=== PATIENT | female | born 1990 | race Asian ===

== ENCOUNTER 2025-05-01 18:19 | Emergency (ER) | payer OTHER, SELFPAY ==
[2025-05-01 18:24] VITALS: BP 119/78
[2025-05-01 18:49] LABS: Urine Character Clear (Clear)
[2025-05-01 18:50] LABS: Hematocrit 41.2 % (37.0-47.0); Hemoglobin 13.5 g/dL (12.0-16.0); Mean Corp Hgb Conc. 32.8 g/dL (33.0-37.0); Mean Corpuscular Volume 85.8 fL (81.0-99.0); Nucleated Red Blood Cells % 0 %; Platelet Count 325 10^3/uL (130-400); Red Cell Dist. Width 14.6 % (11.5-14.5)
[2025-05-01 19:04] LABS: HCG, Serum Qualitative Screen Negative
[2025-05-01 19:08] LABS: ALT (SGPT) 18 U/L (0-35); AST (SGOT) 21 U/L (14-36); Albumin 5.0 g/dl (3.5-5.0); Alkaline Phosphatase 83 U/L (38-126); Blood Urea Nitrogen 12 mg/dl (7-17); Calcium 9.6 mg/dl (8.4-10.2); Carbon Dioxide 24 mmol/L (22-30); Chloride 102 mmol/L (98-107); Glucose 135 mg/dl (70-99); Lipase 43 U/L (23-300); Potassium 3.7 mmol/L (3.5-5.1); Sodium 137 mmol/L (135-145); Total Protein 8.3 g/dl (6.3-8.2); eGFR > 60.00
[2025-05-01 19:48] LABS: Urine Squamous Cell 0-2 /LPF (Few); Urine White Cell 0-2 /HPF (0-5)
--- NOTE | 2025-05-01 21:45 | ED.GENMED ---
History of Present Illness
<Fiona Zhang NP - Last Filed: 05/02/25 00:31>
General
Chief Complaint: Abdominal Pain
Source: patient
Exam Limitations: none
Time Seen by Provider: 05/01/25 21:35
Nursing documentation reviewed up to this point in time: agreed with
History of Present Illness
History of Present Illness:
Patient is emergency department with complaint of diffuse abdominal pain. Symptoms started yesterday. She reports nausea but no episodes of vomiting. She denies any episodes of diarrhea. She denies any episodes of fever/chills. Denies any sick
contacts. No prior history of same. Brought self to the emergency department for evaluation.
Past History
<Fiona Zhang NP - Last Filed: 05/02/25 00:31>
Past History
ED Past Medical History: None
Review of Systems
<Fiona Zhang LIFE SKILLS COORDINATOR - Last Filed: 05/02/25 00:31>
Review of Systems
Allergies reviewed?: Yes
All Other Systems: ROS reviewed and negative except as documented in HPI and ROS
Constitutional: Reports no symptoms
EENT: Reports no symptoms
Respiratory: Reports no symptoms
Cardiac: Reports no symptoms
ABD/GI: Reports abdominal pain (Diffuse) and nausea
: Reports no symptoms
Musculoskeletal: Reports no symptoms
Skin: Reports no symptoms
Neurological: Reports no symptoms
Psychiatric: Reports no symptoms
Phy Exam
<Fiona Zhang LIFE SKILLS COORDINATOR - Last Filed: 05/02/25 00:31>
General Physical Exam
General Presentation: well appearing and mild distress
General age: appears stated age
General Skin: warm and dry
General Habitus: normal
General Mental: alert
Cardiovascular Exam
Cardiovascular Exam: regular rate/rhythm and no edema
Gastrointestinal Exam
Gastrointestinal Exam: normal bowel sounds, soft, no organomegaly, no pulsatile mass, non distended and no cva tenderness
Palpation: generalized: Moderate tenderness
Musculoskeletal Exam
Musculoskeletal Exam: full ROM
Skin Exam
Skin Exam: normal color, warm/dry and no rash
Psychiatric Exam
Psychiatric Exam: normal mood/affect
Course
<Fiona Zhang NP - Last Filed: 05/02/25 00:31>
Orders/Labs/Results
Orders:
Orders
05/01/25 18:27
Test Result ONCE
05/01/25 18:37
Complete Blood Count/With Diff Urgent
Comprehensive Metabolic Panel Urgent
HCG, Serum Qualitative Screen Urgent
Comment: Notify provider if positive test present
Lipase Urgent
Urinalysis Reflex To Culture Urgent
Date Specimen was Collected: 05/01/25
Time Specimen was Collected: 18:27
Urine Microscopic Reflex Cult Urgent
05/01/25 21:44
CT Abd/pelvis W Iv Cont Urgent
Comment:
Reason For Exam: diffuse abd. pain, nausea
05/01/25 23:57
0.9% Sodium Chloride 1000 ml [Nss] 1,000 ml IV BOLUS
05/02/25 00:00
US Pelvis Only (non-obstetric) Urgent
Reason For Exam: pain, ovarian mass on CT
Abnormal Lab Results
05/01/25
18:37
WBC 13.5 H 10^3/uL
(4.8-10.8)
MCHC 32.8 L g/dL
(33.0-37.0)
RDW 14.6 H %
(11.5-14.5)
Absolute Neuts (auto) 10.4 H 10^3/uL
(1.4-6.5)
Absolute Monos (auto) 0.9 H 10^3/uL
(0.1-0.6)
Neutrophils % 77.2 H %
(42.2-75.2)
Lymphocytes % 15.4 L %
(20.5-51.1)
Glucose 135 H mg/dl
(70-99)
Total Protein 8.3 H g/dl
(6.3-8.2)
Urine Ketones 3+ A
(Negative)
Ur Occult Blood Reflex 1+ A
(Negative)
Urine RBC 7-10 A /HPF
(0-2)
Urine Bacteria (Reflex) Few A
(Negative)
05/01/25 18:37
05/01/25 18:37
Vital Signs
Initial and Last Documented VS:
Initial Vital Signs
Temp Pulse Resp BP Pulse Ox
98.4 F 91 20 119/78 99
05/01/25 18:24 05/01/25 18:24 05/01/25 18:24 05/01/25 18:24 05/01/25 18:24
Last Documented Vital Signs
Temp Pulse Resp BP Pulse Ox
98.4 F 99 25 105/64 96
05/01/25 18:24 05/02/25 02:15 05/02/25 02:15 05/02/25 00:00 05/02/25 02:00
[place]rist[place];Berta Kitchen PA-C - Last Filed: 05/02/25 07:31>
Orders/Labs/Results
Orders:
Orders
05/01/25 18:27
Test Result ONCE
05/01/25 18:37
Complete Blood Count/With Diff Urgent
Comprehensive Metabolic Panel Urgent
HCG, Serum Qualitative Screen Urgent
Comment: Notify provider if positive test present
Lipase Urgent
Urinalysis Reflex To Culture Urgent
Date Specimen was Collected: 05/01/25
Time Specimen was Collected: 18:27
Urine Microscopic Reflex Cult Urgent
05/01/25 21:44
CT Abd/pelvis W Iv Cont Urgent
Comment:
Reason For Exam: diffuse abd. pain, nausea
05/01/25 23:57
0.9% Sodium Chloride 1000 ml [Nss] 1,000 ml IV BOLUS
05/02/25 00:00
US Pelvis Only (non-obstetric) Urgent
Reason For Exam: pain, ovarian mass on CT
Abnormal Lab Results
05/01/25
18:37
WBC 13.5 H 10^3/uL
(4.8-10.8)
MCHC 32.8 L g/dL
(33.0-37.0)
RDW 14.6 H %
(11.5-14.5)
Absolute Neuts (auto) 10.4 H 10^3/uL
(1.4-6.5)
Absolute Monos (auto) 0.9 H 10^3/uL
(0.1-0.6)
Neutrophils % 77.2 H %
(42.2-75.2)
Lymphocytes % 15.4 L %
(20.5-51.1)
Glucose 135 H mg/dl
(70-99)
Total Protein 8.3 H g/dl
(6.3-8.2)
Urine Ketones 3+ A
(Negative)
Ur Occult Blood Reflex 1+ A
(Negative)
Urine RBC 7-10 A /HPF
(0-2)
Urine Bacteria (Reflex) Few A
(Negative)
05/01/25 18:37
05/01/25 18:37
Vital Signs
Initial and Last Documented VS:
Initial Vital Signs
Temp Pulse Resp BP Pulse Ox
98.4 F 91 20 119/78 99
05/01/25 18:24 05/01/25 18:24 05/01/25 18:24 05/01/25 18:24 05/01/25 18:24
Last Documented Vital Signs
Temp Pulse Resp BP Pulse Ox
98.4 F 99 25 105/64 96
05/01/25 18:24 05/02/25 02:15 05/02/25 02:15 05/02/25 00:00 05/02/25 02:00
<Fiona Zhang NP - Last Filed: 05/02/25 00:31>
*Radiology
Radiology exam reviewed: radiology read reviewed
*Pulse Oximetry
SaO2: 99
Oxygen Mode of Delivery: Room air
Patient hypoxic: no
<Berta Kitchen PA-C - Last Filed: 05/02/25 07:31>
*Critical Care Note
Total Time (30-74mins, 75-104mins- exclusive of procedures): Not Applicable
<Fiona Zhang NP - Last Filed: 05/02/25 00:31>
Update Note
Update Note:
Patient to the emergency department with complaint of diffuse abdominal pain. She states pain started yesterday. She she reports nausea but no vomiting. She denies any fever or chills. Vital signs are stable and she has remained afebrile. Labs
reviewed. WBC 13.5. CMP WNL UA with +1 occult blood 7-[address] of abdomen and pelvis was completed. Mildly complex cystic right ovarian mass noted. Differential diagnosis includes hemorrhagic cyst, endometrioma, ovarian
neoplasm. Tubo-ovarian abscess could be considered as well although less likely in appearance ovarian torsion cannot be ruled out via CT. Discussed these findings with patient. Will send for pelvic ultrasound.
<Berta Kitchen PA-C - Last Filed: 05/02/25 07:31>
Update Note
Update Note:
Patient to the emergency department with complaint of diffuse abdominal pain. She states pain started yesterday. She she reports nausea but no vomiting. She denies any fever or chills. Vital signs are stable and she has remained afebrile. Labs
reviewed. WBC 13.5. CMP WNL UA with +1 occult blood 7-[address] of abdomen and pelvis was completed. Mildly complex cystic right ovarian mass noted. Differential diagnosis includes hemorrhagic cyst, endometrioma, ovarian
neoplasm. Tubo-ovarian abscess could be considered as well although less likely in appearance ovarian torsion cannot be ruled out via CT. Discussed these findings with patient. Will send for pelvic ultrasound.

I received patient in sign out. On my evaluation, patient is well-appearing in no acute distress. She notes no abdominal pain or discomfort at this time. She has not had any vomiting in the ER. She did have nausea earlier. She is declining
prescription for Zofran at this time. Reviewed ultrasound report, there is noted to be hemorrhagic cyst on ultrasound with normal color and Doppler imaging of the right surrounding ovarian stroma. Discussed importance of follow-up. Discussed
Tylenol Motrin as needed for pain. Patient requesting referral for [facility]. Discussed that follow-up is recommended for ultrasound in 2 to 3 months initially. Patient expressed understanding. Discussed return precautions.
Berta TIAN
ED Attending Note
<Fiona Zhang NP - Last Filed: 05/02/25 00:31>
-
Portions of this chart may have been created with voice recognition software.� Occasional wrong word or��sound alike� substitutions may have occurred due to the inherent limitations of voice recognition software.
Discharge Plan
Departure
Patient Disposition: Home (Routine Discharge)
Date of Disposition: 05/02/25
Time of Disposition: 02:16
Patient with high blood pressure during this ER visit?: Yes
Condition: Good
Discharge Problem:
Hemorrhagic cyst of right ovary
Instructions: Ovarian Cyst (DC)
Prescriptions:
No Action
No Current Medications
0
Referrals:
NONE,* [Family Provider, Internal Medicine]
Mery Sepulveda, DO [Active, Gynecology] - Call in 1-3 days for appt
Activity Restrictions/Additional Instructions:
As discussed, please call the attached number for Dr. Sepulveda's office to schedule follow-up appointment and to establish care. You will need a repeat ultrasound.
Your information has been sent to the primary care request hotline. You should receive a call in next few days.
Please continue monitor your symptoms. PLEASE RETURN TO THE ER SHOULD YOU DEVELOP ACUTE WORSENING OR SYMPTOMS, SIGNIFICANT BLEEDING, LIGHTHEADEDNESS, DIZZINESS, FAINTING SPELLS, FLANK PAIN, FEVERS, OR ANY OTHER SIGNS OR SYMPTOMS WORRISOME TO YOU.
Interventions
Interventions:
*General Assessment Last Done: 05/01/25 18:24
*Neglect/Abuse Screening Last Done: 05/01/25 18:24
*ED COVID-19 Vaccine History Last Done: 05/01/25 21:44
*ED Influenza Vaccine History Last Done: 05/01/25 21:44
[facility] Risk Assessment Tool Last Done: 05/01/25 22:14
*Risk Screen - Suicide (C-SSRS) Last Done: 05/01/25 18:24
*Nursing Disposition Last Done: 05/02/25 02:30
TR-Fiwchu-Yntwzvmznx Assessment Last Done: 05/01/25 23:35
Discharge Date and Time
Discharge Date/Time: 05/02/25 02:30
Print Language: NEPALESE
[2025-05-01 22:12] VITALS: BP 105/69
[2025-05-01 22:50] VITALS: BP 112/70
[2025-05-01 23:00] VITALS: BP 106/68
[2025-05-02] VITALS: BP 105/64
[2025-05-02] MEDS: NSS 1000 IV (00:01)
== END 2025-05-02 02:30 | disposition home or self-care (01) ==
LOC: EMR 18:19
PROVIDERS: Emergency Medicine; EMERGENCY PHYSICIAN Emergency Medicine
DX: N83.201 Unspecified ovarian cyst, right side (principal); R10.84 Generalized abdominal pain; R11.0 Nausea; R03.0 Elevated blood-pressure reading, without diagnosis of hypertension
CPT/HCPCS: 99284; 96360; 74177; 76856; 80053; 81003; 81015; 83690; 84703; 85025; Q9967